=== PATIENT | male | born 1960 | race Caucasian/White ===

== ENCOUNTER 2017-06-17 22:22 | Emergency (ER) | payer BC ==
[2017-06-17 22:43] VITALS: BP 163/84; PULSE 73; TEMP 98.9; BMI 31.6
[2017-06-17] MEDS ORDERED: morphine CARPU-JECT 2 MG/1 ML DISP.SYRIN IVPUSH ONE (23:05)
[2017-06-17] MEDS ORDERED: ONDANSETRON 4 MG/2 ML VIAL IVPUSH ONE (23:05)
[2017-06-17] MEDS ORDERED: SODIUM CHLORIDE 1,000 ML IV STA (23:05)
--- NOTE | 2017-06-17 23:18 | PDOC ---
History of Present Illness - General History Source: Patient, Spouse Exam Limitations: No Limitations - History of Present Illness Travel History: No Initial Comments: 06/17/17 23:05 56yo Male patient w/ PmHx: NIDDM presents to ED c/o abdominal pain. Patient states symptoms began last night as achy pain, that progressed intense pain after eating breakfast this morning. Associated nausea/vomiting and diarrhea. Patient went to [facility] for evaluation. Blood work and Ct-Scan done. Patient provided results of all labs and radiological studies done. Unremarkable labs and no acute pathology found on Ct-Scan based on paperwork provided. Patient was sent to this ED for evaluation of pain. He denies any other complaints at this time. Timing/Duration: reports: constant Quality: reports: moderate Abdominal Pain Onset Location: reports: LLQ Pain Radiation: reports: no radiation Activities at Onset: reports: no specific activity Treatment Prior to Arrive: worse with: analgesics, antacids, cold pack, heat, laxative, enema, other <Jalil Diaz - Last Filed: 06/17/17 23:05> <Dagoberto Puri - Last Filed: 06/18/17 00:24> - General Chief Complaint: Pain Stated Complaint: PAIN Time Seen by Provider: 06/17/17 22:47 Past History - Travel Traveled outside of the country in the last 30 days: No Close contact w/someone who was outside of country & ill: No - Past Medical History Diabetes: Yes - Suicide/Smoking/Psychosocial Hx Smoking History: Never smoked <Jalil Diaz - Last Filed: 06/17/17 23:05> <Dagoberto Puri - Last Filed: 06/18/17 00:24> - Past Medical History Allergies/Adverse Reactions: Allergies Allergy/AdvReac Type Severity Reaction Status Date / Time No Known Allergies Allergy Verified 06/17/17 22:43 Home Medications: Ambulatory Orders Ciprofloxacin HCl [Cipro] 500 mg PO BID #14 tablet 06/18/17 Metronidazole [Flagyl -] 500 mg PO DAILY #14 tablet 06/18/17 Oxycodone HCl/Acetaminophen [Percocet 5-325 mg Tablet] 1 tab PO Q6H #15 tablet MDD 4 06/18/17 Abd/GI Specific PMHX - Complaint Specific PMHX Colitis: No Diverticulitis: No Gall Bladder Disease: No GERD: No Hepatitis: No Irritable Bowel Synd (IBS): No Pancreatitis: No GI Ulcer Disease: No <Jalil Diaz - Last Filed: 06/17/17 23:05> Review of Systems - Review of Systems Able to Perform ROS?: Yes Is the patient limited Armenian proficient: No Constitutional: No: Chills, Fever ABD/GI: Yes: Diarrhea, Nausea, Poor Fluid Intake, Vomiting, Abdominal cramping. No: Blood Streaked Bowels, Constipated, Poor Appetite, Rectal Bleeding : No: Dysuria, Pain, Urgency Musculoskeletal: No: Back Pain All Other Systems: Reviewed and Negative <Jalil Diaz - Last Filed: 06/17/17 23:05> *Physical Exam - Vital Signs Last Vital Signs Temp Pulse Resp BP Pulse Ox 98.9 F 73 18 163/84 99 06/17/17 22:39 06/17/17 22:39 06/17/17 22:39 06/17/17 22:39 06/17/17 22:39 - Physical Exam General Appearance: Yes: Nourished, Appropriately Dressed, Mild Distress. No: Apparent Distress, Moderate Distress, Severe Distress Respiratory/Chest: positive: Lungs Clear, Normal Breath Sounds. negative: Chest Tender, Respiratory Distress, Accessory Muscle Use, Labored Respiration, Rapid RR, Paradoxal Breathing, Rhonchi, Stridor Cardiovascular: positive: Regular Rhythm, Regular Rate Gastrointestinal/Abdominal: positive: Tender (Mild Tenderness.), Soft, Decreased BS, Tenderness. negative: Distended, Guarding, Rebound Musculoskeletal: positive: Normal Inspection. negative: CVA Tenderness, Vertebral Tenderness Extremity: positive: Normal Capillary Refill, Normal Inspection, Normal Range of Motion. negative: Pedal Edema, Swelling, Calf Tenderness, Erythema, Inflammation Integumentary: positive: Normal Color, Dry, Warm Neurologic: positive: measurement and sensing technician II-XII NML intact, Fully Oriented, Alert, Normal Mood/ Affect, Normal Response, Motor Strength 5/5 <Jalil Diaz - Last Filed: 06/17/17 23:05> - Vital Signs Last Vital Signs Temp Pulse Resp BP Pulse Ox 98.9 F 73 18 163/84 99 06/17/17 22:39 06/17/17 22:39 06/17/17 22:39 06/17/17 22:39 06/17/17 22:39 <Dagoberto Puri - Last Filed: 06/18/17 00:24> ED Treatment Course - ADDITIONAL ORDERS Additional order review: Laboratory Results 06/17/17 23:42 Urine Color Yellow Urine Appearance Clear Urine pH 5.0 Urine Protein 1+ H Urine Glucose (UA) 3+ H Urine Ketones 2+ H Urine Blood Negative Urine Nitrite Negative Urine Bilirubin Negative Urine Urobilinogen Negative Urine RBC <1 Urine WBC None Urine Mucus Rare - Medications Given in the ED: ED Medications Discontinued Medications Generic Name Dose Route Start Last Admin Trade Name Santyq PRN Reason Stop Dose Admin Sodium Chloride 1,000 mls @ 1,000 mls/hr 06/17/17 23:05 06/17/17 23:53 Normal Saline - IV 06/18/17 00:04 1,000 mls/hr ASDIR STA Administration Morphine Sulfate 2 mg 06/17/17 23:05 06/17/17 23:53 Morphine Injection - IVPUSH 06/17/17 23:06 2 mg ONCE ONE Administration Ondansetron HCl 4 mg 06/17/17 23:05 06/17/17 23:54 Zofran Injection IVPUSH 06/17/17 23:06 4 mg ONCE ONE Administration <Dagoberto Puri - Last Filed: 06/18/17 00:24> *DC/Admit/Observation/Transfer <Jalil Diaz - Last Filed: 06/17/17 23:05> - Discharge Dispostion Admit: No <Dagoberto Puri - Last Filed: 06/18/17 00:24> Diagnosis at time of Disposition: Abdominal pain Qualifiers: Abdominal location: left lower quadrant Qualified Code(s): R10.32 - Left lower quadrant pain Diverticulosis Qualifiers: Diverticulosis site: unspecified location Diverticulosis bleeding: diverticulosis without bleeding Qualified Code(s): K57.90 - Diverticulosis of intestine, part unspecified, without perforation or abscess without bleeding - Discharge Dispostion Condition at time of disposition: Stable - Prescriptions Prescriptions: Ciprofloxacin HCl [Cipro] 500 mg PO BID #14 tablet Metronidazole [Flagyl -] 500 mg PO DAILY #14 tablet Oxycodone HCl/Acetaminophen [Percocet 5-325 mg Tablet] 1 tab PO Q6H #15 tablet MDD 4 - Referrals Referrals: Dennett,Declan [Primary Care Provider] - Rick Rodriguez MD [Staff Physician] - - Patient Instructions Printed Discharge Instructions: DI for Abdominal Pain-Adult Additional Instructions: Follow up with your physician and the [employer] Sales Representative/ Dr. Rodriguez )listed on your discharge. Take your antibiotics as prescribed: Cirpofloxacin 500mg take 1 tablet by mouth twice a day until complete 'Flagyl 500mg Take 1 tablet by mouth twice a day until complete Take the pain medication only as needed (Percocet 5/325) take 1 tablet by mouth every 6 hours ONLY as needed Return to the ER for severe/persistent/worsening symptoms Print Language: KINYARWANDA
[2017-06-17 23:49] LABS: URINE APPEARANCE CLEAR; URINE BILIRUBIN NEGATIVE (NEGATIVE); URINE BLOOD NEGATIVE (NEGATIVE); URINE COLOR YELLOW; URINE GLUCOSE (UA) 3+ (NEGATIVE); URINE KETONE 2+ (NEGATIVE); URINE NITRITE NEGATIVE (NEGATIVE); URINE UROBILINOGEN NEGATIVE mg/dL (0.2-1.0)
[2017-06-17] MEDS ORDERED: ONDANSETRON 4 MG/2 ML VIAL ONE (23:49)
[2017-06-17] MEDS ORDERED: morphine CARPU-JECT 2 MG/1 ML DISP.SYRIN ONE (23:49)
[2017-06-17 23:56] LABS: URINE PROTEIN 1+ (NEGATIVE)
[2017-06-17 23:57] LABS: URINE MUCUS RARE; URINE RBC <1 /hpf (0-3)
[2017-06-18] MEDS ORDERED: LEVOFLOXACIN 500 MG IVPB 100 ML IVPB ONE ×2 (00:08→01:55)
[2017-06-18] MEDS ORDERED: METRONIDAZOLE 500 MG PREMIXED 100 ML IVPB ONE ×2 (00:08→00:52)
[2017-06-18 10:01] LABS: URINE LEUK ESTERASE Negative (NEGATIVE)
== END 2017-06-18 02:13 | disposition home or self-care (01) ==
LOC: JER 22:22
PROC: 3E033NZ Introduction of Analgesics, Hypnotics, Sedatives into Peripheral Vein, Percutaneous Approach (ICD-10-PCS; principal; 2017-06-17)
PROC: 3E033GC Introduction of Other Therapeutic Substance into Peripheral Vein, Percutaneous Approach (ICD-10-PCS; 2017-06-17)
DX: K57.90 Diverticulosis of intestine, part unspecified, without perforation or abscess without bleeding (principal); E11.9 Type 2 diabetes mellitus without complications; Z79.84 Long term (current) use of oral hypoglycemic drugs
CPT/HCPCS: 81003; 81015; 99282-25